=== PATIENT | female | born 1945 | race African-American/Black ===

== ENCOUNTER 2017-04-27 17:47 | Inpatient (IN) | payer OTHER, MEDICAID ==
[~2017-04-27] VITALS: Ht 162.6 cm; Wt 90.7 kg
[~2017-04-27 17:47] MED LIST: CELE100C PO; CIPR-172 PO; FERR-57 PO; NEU300 PO; PRO40 PO
[2017-04-27 17:50] VITALS: BP_SYST 161
[2017-04-27] MEDS ORDERED: NACL 0.9% 1,000 ML IV ONE ×2 (18:45→21:30)
[2017-04-27] MEDS ORDERED: cefTRIAXone 1 GM IVPB PREMIX 50 ML IV ONE (18:45)
[2017-04-27 18:47] LABS: ANION GAP 15 (5-15); CALCIUM 10.7 mg/dL (8.4-11.0); CHLORIDE 104 mmol/L (98-107); CREATININE 2.53 mg/dL (0.55-1.30); GLUCOSE 136 mg/dL (70-99); SODIUM SERUM 137 mmol/L (136-145); UREA NITROGEN, BLOOD 63 mg/dL (8-21)
[2017-04-27 18:50] LABS: PROTHROMBIN TIME 10.6 SECS (9.5-12.5)
[2017-04-27 18:52] LABS: ALANINE AMINOTRANSFERASE 39 U/L (12-78); ALBUMIN 2.5 g/dL (3.4-4.8); ASPARTATE AMINOTRANSFERASE 83 U/L (10-37); TOTAL BILIRUBIN 6.3 mg/dL (0.0-1.0); TOTAL PROTEIN, SERUM 7.1 g/dL (6.4-8.3)
[2017-04-27 18:53] LABS: POTASSIUM 4.4 mmol/L (3.5-5.1); SALICYLATE < 1 mg/dL (3-30)
[2017-04-27 18:54] LABS: ALCOHOL, BLOOD < 3 mg/dL (<10)
[2017-04-27 19:02] LABS: ACETAMINOPHEN < 1 ug/mL (1-30)
[2017-04-27 20:48] LABS: HEMATOCRIT 27.5 % (36-48); HEMOGLOBIN 9.2 g/dL (12.0-16.0); MEAN CORPUSCULAR HEMOGLOBIN 28 pg (27-31); MEAN CORPUSCULAR HGB CONC 33 % (32-36); MEAN CORPUSCULAR VOLUME 83 fL (79.0-98.0); RED BLOOD CELL COUNT(AUTO) 3.31 MIL/uL (4.2-6.2); WHITE BLOOD COUNT (AUTO) 6.9 K/uL (4.8-10.8)
[2017-04-27 20:50] LABS: BILIRUBIN,URINE 3+ (NEGATIVE); BLOOD, URINE 3+ (NEGATIVE); CLARITY/URINE HAZY (CLEAR); COLOR,URINE AMBER (YELLOW); GLUCOSE,URINE NEGATIVE (NEGATIVE); KETONES,URINE TRACE (NEGATIVE); LEUKOCYTE ESTERASE ,URINE TRACE (NEGATIVE); NITRITE, URINE POSITIVE (NEGATIVE); PH,URINE 6.5 (5.0-8.0); PROTEIN URINE 3+ (NEGATIVE)
[2017-04-27 20:58] LABS: PLATELET COUNT (AUTO) 24 K/uL (130-430)
[2017-04-27 20:59] LABS: BAND % (MANUAL) 4 % (0-6); EOSINOPHILS % (MANUAL) 0 % (0-7); LYMPHOCYTES % (MANUAL) 7 % (20-46); MONOCYTES % (MANUAL) 11 % (0-11)
[2017-04-27 21:00] LABS: BASOPHILS % (MANUAL) 0 % (0-2); METAMYELOCYTES % 1 % (0-0); MYELOCYTES % 1 % (0-0)
[2017-04-27 21:01] LABS: BARBITURATE, URINE NEGATIVE (NEG <=200); BENZODIAZEPINE, URINE NEGATIVE (NEG <=150); CANNABINOID, URINE NEGATIVE (NEG <=50); COCAINE, URINE NEGATIVE (NEG <=150); METHAMPHETAMINES SCREEN,URINE NEGATIVE (NEG <=500); OPIATE, URINE POSITIVE (NEG <=100); PHENCYCLIDINE SCREEN,URINE NEGATIVE (NEG <=25); URINE AMPHETAMINE NEGATIVE (NEG <=500); URINE METHADONE NEGATIVE (NEG <=200)
[2017-04-27 21:02] LABS: UR TRICYCLIC ANTIDEPRESSANTS NEGATIVE (NEG <=300); URINE OXYCODONE SCREEN NEGATIVE (NEG <=100); URINE PROPOXYPHENE SCREEN NEGATIVE (NEG <=300)
[2017-04-27 21:08] LABS: BACTERIA,URINE MANY /HPF (None Seen); MUCUS,URINE None Seen /LPF (None Seen); RBC,URINE 0-3 /HPF (0-3)
[2017-04-27] MEDS ORDERED: HYDR-1189 PO (22:56)
[2017-04-27] MEDS ORDERED: TRAM50TA92 PO (22:57)
[2017-04-27] MEDS ORDERED: BACL10TA PO (22:59)
[2017-04-27] MEDS ORDERED: cefTRIAXone 1 GM IVPB PREMIX 50 ML IV SCH (23:00)
[2017-04-27] MEDS ORDERED: LOSA25TA3 PO (23:01)
[2017-04-27] MEDS ORDERED: ATEN50TA PO (23:01)
[2017-04-27] MEDS ORDERED: METF-509 PO (23:03)
[2017-04-27] MEDS ORDERED: ATOR10TA68 PO (23:03)
[2017-04-27] MEDS ORDERED: ACYC400T PO (23:03)
[2017-04-27] MEDS ORDERED: traMADol HCL HCL 50 MG TABLET (ULTRAM) PO PRN (23:15)
[2017-04-27] MEDS ORDERED: HYDROcodone/ACETAMIN 5-325 MG TAB (NORCO/ VICODIN) PO PRN (23:15)
[2017-04-27] MEDS ORDERED: INSULIN REGULAR, HUMAN 100 UNITS/ML, 10 ML VIAL (novoLIN R) SUBCUT PRN (23:15)
[2017-04-27 23:24] VITALS: BP_SYST 124
[2017-04-28] VITALS (23 sets, daily range): BP systolic 92–143
[2017-04-28] MEDS: NACL 0.9% 1,000 ML IV SCH ×3 (04:50→12:27)
[2017-04-28] MEDS ORDERED: ACETAMINOPHEN 325 MG TABLET PO PRN (07:30)
[2017-04-28 08:04] LABS: RED CELL DISTRIBUTION WIDTH 13.2 % (9.0-15.0)
[2017-04-28 08:06] LABS: ANION GAP 9 (5-15); CALCIUM 8.7 mg/dL (8.4-11.0); CHLORIDE 109 mmol/L (98-107); CREATININE 3.52 mg/dL (0.55-1.30); GLUCOSE 97 mg/dL (70-99); POTASSIUM 4.7 mmol/L (3.5-5.1); SODIUM SERUM 138 mmol/L (136-145); UREA NITROGEN, BLOOD 83 mg/dL (8-21)
[2017-04-28 08:09] LABS: HEMATOCRIT 25.1 % (36-48); HEMOGLOBIN 8.4 g/dL (12.0-16.0); MEAN CORPUSCULAR HEMOGLOBIN 28 pg (27-31); MEAN CORPUSCULAR HGB CONC 33 % (32-36); MEAN CORPUSCULAR VOLUME 83 fL (79.0-98.0); RED BLOOD CELL COUNT(AUTO) 3.04 MIL/uL (4.2-6.2); WHITE BLOOD COUNT (AUTO) 7.4 K/uL (4.8-10.8)
[2017-04-28 08:10] LABS: ALANINE AMINOTRANSFERASE 29 U/L (12-78); ALBUMIN 1.7 g/dL (3.4-4.8); ASPARTATE AMINOTRANSFERASE 85 U/L (10-37); TOTAL BILIRUBIN 2.6 mg/dL (0.0-1.0); TOTAL PROTEIN, SERUM 5.5 g/dL (6.4-8.3)
[2017-04-28 08:17] LABS: PLATELET COUNT (AUTO) 35 K/uL (130-430)
[2017-04-28] MEDS ORDERED: PANTOPRAZOLE SODIUM 40 MG TAB PO SCH (09:00)
[2017-04-28] MEDS ORDERED: cefTRIAXone 1 GM in D5W 50 ML IV SCH (09:00)
[2017-04-28] MEDS ORDERED: ACYCLOVIR 400 MG TABLET PO SCH (09:00)
[2017-04-28] MEDS ORDERED: ATORVASTATIN 10 MG TABLET PO SCH (09:00)
[2017-04-28] MEDS ORDERED: LOSARTAN POTASSIUM 25 MG TABLET PO SCH (09:00)
[2017-04-28 10:00] LABS: IRON (SERUM) 51 mcg/dL (37-145); TOTAL IRON BIND. CAPACITY 117 ug/dL (250-450)
[2017-04-28 10:03] LABS: ATYPICAL LYMPHOCYTES % 0 % (0-0); BAND % (MANUAL) 5 % (0-6); BASOPHILS % (MANUAL) 0 % (0-2); EOSINOPHILS % (MANUAL) 0 % (0-7); LYMPHOCYTES % (MANUAL) 30 % (20-46); MONOCYTES % (MANUAL) 3 % (0-11)
[2017-04-28 11:53] LABS: ABG TOTAL HEMOGLOBIN 10.1 G/dL (12.0-18.0); BLOOD GAS BASE EXCESS -9.8 mmol/L (-3.0-3.0)
[2017-04-28 11:54] LABS: BLOOD GAS COHb% 2.3 % (0.5-1.5); BLOOD O2Hb% 92.9 % (94.0-97.0)
[2017-04-28] MEDS: DOXYCYCLINE HYCLATE 100 MG in D5W 100 ML IV SCH ×2 (15:53→21:05)
[2017-04-28] MEDS ORDERED: NS 1000 ML BAG IV ONE (18:15)
[2017-04-28] MEDS ORDERED: NOREPINEPHRINE 4 MG/4 ML VIAL IV ONE (18:28)
[2017-04-28 18:30] LABS: BLOOD GAS PH 7.311 (7.350-7.450)
[2017-04-28 18:31] LABS: ABG TOTAL HEMOGLOBIN 8.5 G/dL (12.0-18.0); BLOOD GAS COHb% 2.2 % (0.5-1.5); BLOOD GAS HHB 3.3 % (0.0-6.0); BLOOD O2Hb% 93.4 % (94.0-97.0)
[2017-04-28] MEDS ORDERED: COMMUNICATION ORDER XX ONE (19:00)
[2017-04-28] MEDS ORDERED: SODIUM BICARBONATE 8.4% JECT 150 MEQ in D5W 1,000 ML IV SCH (19:15)
[2017-04-28] MEDS ORDERED: SODIUM BICARBONATE 8.4% JECT 50 MEQ/50 ML SYRINGE ONE (19:17)
[2017-04-28] MEDS ORDERED: GABAPENTIN 300 MG CAPSULE PO SCH (21:00)
[2017-04-29] VITALS: BP_SYST 103
[2017-04-29 01:00] VITALS: BP_SYST 99
[2017-05-01 08:07] LABS: BLOOD GAS BASE EXCESS -11.9 mmol/L (-3.0-3.0)
[2017-05-02 08:13] LABS: CANCER AG, 125 25.7 U/mL (0.0-38.1)
== END 2017-04-29 02:41 | disposition short-term general hospital (02) | DRG 871 ==
LOC: SED 17:47 → SIC 22:03
PROC: 05H533Z Insertion of Infusion Device into Right Subclavian Vein, Percutaneous Approach (ICD-10-PCS; principal; 2017-04-28)
PROC: B546ZZA Ultrasonography of Right Subclavian Vein, Guidance (ICD-10-PCS; 2017-04-28)
DX: A41.9 Sepsis, unspecified organism (principal); G93.41 Metabolic encephalopathy; N17.0 Acute kidney failure with tubular necrosis; N39.0 Urinary tract infection, site not specified; B50.0 Plasmodium falciparum malaria with cerebral complications; D64.9 Anemia, unspecified; D69.6 Thrombocytopenia, unspecified; G89.4 Chronic pain syndrome; J45.909 Unspecified asthma, uncomplicated; G94 Other disorders of brain in diseases classified elsewhere; K21.9 Gastro-esophageal reflux disease without esophagitis; M19.90 Unspecified osteoarthritis, unspecified site; N18.9 Chronic kidney disease, unspecified; R65.20 Severe sepsis without septic shock; I12.9 Hypertensive chronic kidney disease with stage 1 through stage 4 chronic kidney disease, or unspecified chronic kidney disease; E11.22 Type 2 diabetes mellitus with diabetic chronic kidney disease; Z85.41 Personal history of malignant neoplasm of cervix uteri; Z85.43 Personal history of malignant neoplasm of ovary; Z90.5 Acquired absence of kidney; Z88.8 Allergy status to other drugs, medicaments and biological substances; Z79.899 Other long term (current) drug therapy; Z90.710 Acquired absence of both cervix and uterus
CPT/HCPCS: 36415; 36600; 70450-TC; 71010; 71250-TC; 74000-TC; 76770; 80053; 80307; 81000-TC; 82140-TC; 82607; 82746; 82803-TC; 82962; 83540-TC; 83550-TC; 83605; 84439; 84484; 85007; 85027; 85044-TC; 85610-TC; 85651-TC; 85730-TC; 86304; 87040-TC; 87086; 87207; 93005; 93306; 93970; 96361; 96365; 99285; C1751; G0480; G0481; G0482; J0696; J1815; J3490; J7030; J7040; J7060